=== PATIENT | male | born 1960 | race Caucasian/White ===

== ENCOUNTER 2025-06-23 10:57 | Emergency (ER) | payer OTHER ==
[~2025-06-23] VITALS: Ht 177.8 cm; Wt 72.5 kg
[2025-06-23 12:29] LABS: BASOPHILS 0.5 % (0.2-1.2); EOSINOPHILS 1.9 % (0.8-7.0); LYMPHOCYTES 7.7 % (21.8-53.1); MCH 28.4 PG (25.7-32.2); MCHC 31.9 g/dL (32.3-36.5); MCV 88.9 fL (79.0-92.2); MONOCYTES 6.7 % (5.3-12.2); NEUTROPHILS 82.9 % (34.0-67.9); RBC 4.23 M/uL (4.63-6.08)
[2025-06-23 12:57] LABS: ALT (SGPT) 6.0 U/L (14-59); AST (SGOT) 12.0 U/L (15-37); GLOMERULAR FILTRATION RATE,EST 60.0 mL/min (>60); PROTEIN, TOTAL 6.8 g/dL (6.4-8.2); UREA NITROGEN 23.0 mg/dL (7-18)
[2025-06-23] MEDS ORDERED: FUROSEMIDE 40 MG/4 ML VIAL IV ONE (13:30)
[2025-06-23 14:57] VITALS: BP 191/134
--- NOTE | 2025-06-24 16:34 | EKG ---
[facility] [address] [place] [address] Signed Sinus rhythm with occasional premature ventricular complexes Biatrial enlargement Left axis deviation Left ventricular hypertrophy with QRS widening ( R in aVL , Sokolow-Gomez , Yovani product , Romhilt-Huddleston ) ST \T\ T wave abnormality, consider lateral ischemia Abnormal ECG No previous ECGs available Confirmed by Krystina Rondon MD () on 06/24/2025 4:33:48 PM Electronically Signed By: KRYSTINA RONDON MD 06/24/25 1634 PATIENT NAME: MACIEJ MCKINNEY Electrocardiogram DATE OF : 60 PHYSICIAN: KRYSTINA RONDON MD REPORT #: [id number] REPORT IS CONFIDENTIAL AND NOT TO BE RELEASED WITHOUT AUTHORIZATION
== END 2025-06-23 14:56 | disposition home or self-care (01) ==
LOC: ED 10:57
PROVIDERS: Emergency Medicine
DX: I12.9 Hypertensive chronic kidney disease with stage 1 through stage 4 chronic kidney disease, or unspecified chronic kidney disease (principal); I50.9 Heart failure, unspecified; E11.9 Type 2 diabetes mellitus without complications; Z86.73 Personal history of transient ischemic attack (TIA), and cerebral infarction without residual deficits
CPT/HCPCS: 36415; 51702; 71045; 80053; 83735; 83880; 84484; 85025; 93005; 93010; 96374; 99285-25; A6590; J1938